=== PATIENT | female | born 1995 | race American Indian/Alaskan Native ===

== ENCOUNTER 2020-06-20 04:54 | Emergency (ER) | payer MEDICAID ==
[2020-06-20 05:06] VITALS: BP 145/90
[2020-06-20] MEDS ORDERED: oxyCODONE /ACETAMINOPHEN 5-325MG TAB ONE (05:20)
[2020-06-20] MEDS ORDERED: oxyCODONE /ACETAMINOPHEN 5-325MG TAB PO ONE (05:20)
--- NOTE | 2020-06-20 05:32 | XRay Report ---
RIGHT THUMB 3 VIEWS INDICATION / CLINICAL INFORMATION: right thumb injury COMPARISON: None available. FINDINGS: BONES / JOINT(S): No acute fracture or subluxation. No significant arthritis. SOFT TISSUES: No significant abnormality. ADDITIONAL FINDINGS: None. Signer Name: Ernie Nielson MD Signed: 06/20/2020 5:28 AM Workstation Name: [id number]
[2020-06-20] MEDS ORDERED: MORPHINE 4 MG/1 ML INJ ONE (06:20)
[2020-06-20] MEDS ORDERED: ONDANSETRON 4 MG/2 ML INJ ONE (06:20)
[2020-06-20] MEDS ORDERED: MORPHINE 4 MG/1 ML INJ IM ONE (06:20)
[2020-06-20] MEDS ORDERED: ONDANSETRON 4 MG/2 ML INJ IM ONE (06:20)
--- NOTE | 2020-06-20 06:37 | Emergency Department Report ---
Upper Extremity - HPI Chief Complaint: Extremity Injury, Upper Stated Complaint: RT THUMB INJURY Upper Extremity: Right Thumb Occurred When: 1 Day Mechanism: Crush Severity: moderate Symptoms: Yes Pain with Movement, Yes Limited Range of Movement, Yes Swelling, Yes Bruising/Ecchymosis, No Deformity, No Numbness, No Weakness, No Laceration or Abrasion Other History: subungual hematoma right thumb nail s/p thumb in car door. 4 hrs ago. pain 5/10 throbbing ED Review of Systems ROS: Stated complaint: RT THUMB INJURY Other details as noted in HPI Constitutional: denies: chills, fever Eyes: denies: eye pain, eye discharge, vision change ENT: denies: ear pain, throat pain Respiratory: denies: cough, shortness of breath, wheezing Cardiovascular: denies: chest pain, palpitations Endocrine: no symptoms reported Gastrointestinal: denies: abdominal pain, nausea, diarrhea Genitourinary: denies: urgency, dysuria, discharge Musculoskeletal: other (right thumb pain and swelling ) Skin: other (as above ). denies: rash, lesions Neurological: denies: headache, weakness, paresthesias Psychiatric: denies: anxiety, depression ED Past Medical Hx - Past Medical History Previous Medical History?: No - Surgical History Past Surgical History?: No - Social History Smoking Status: Never Smoker Substance Use Type: None - Medications Home Medications: Home Medications Medication Instructions Recorded Confirmed Last Taken Type traMADoL [Ultram] 50 mg PO Q6HR PRN #12 tablet 06/20/20 Unknown Rx Upper Extremity Exam - Exam General: Vital signs noted. No distress. Alert and acting appropriately. Head and Torso: No HEENT Abnormality, No Neck Tenderness, No Chest/Lungs Abnormality, No Abdominal Tenderness, No Back Tenderness Shoulder Exam: Yes Normal Range of Motion in Shoulder, No Shoulder Tenderness, No Clavicle Tenderness, No Shoulder Deformity, No AC Joint Tenderness Arm Exam: No Arm/Humerus Tenderness, No Arm Deformity Elbow: No Elbow Tenderness, No Normal Range of Motion in Elbow, No Elbow Deformity Forearm: No Forearm Tenderness, No Forearm Deformity, No Pain with Pronation, No Pain with Supination Wrist: Yes Normal ROM in Wrist, No Wrist Tenderness, No Wrist Deformity, No Snuffbox Tenderness, No Pain with Axial Thumb Compression Hand: Yes Digit Tenderness (right thumb nail subugual hematoma ), Yes Normal ROM in Digit(s), No Hand Tenderness, No Hand Deformity, No Digit(s) Deformity, No Tendon Dysfunction CMS Exam: Yes Normal Distal Pulses, Yes Normal Capillary Refill, Yes Normal Distal Sensation, No Broken Skin ED Course Vital Signs 06/20/20 05:01 Temperature 98.3 F Pulse Rate 67 Respiratory 18 Rate Blood Pressure 145/90 [Left] O2 Sat by Pulse 99 Oximetry - Procedure Description Procedures done: I&D of right thumb subugual hematoma, site cleaned with betadine solution, pt decline anethesia, hematoma relieved via 18 g need nail puncture x 2 , mod blood drainage , pain resolved sterile dressing applied all bleeding controlled, metal polisher <3 sec, distal pulses intact pt given follow up instr uctions verbalized agreement and understanding of same. pt tolerated procedure with minimal distress. ED Medical Decision Making - Radiology Data Radiology results: report reviewed, image reviewed interpreted by me: Findings Reporting MD: Ernie Nielson Dictation Time: June 20, 2020 04:28 X Ray Consultant: Not available Optical Designer Date: RIGHT THUMB 3 VIEWS INDICATION / CLINICAL INFORMATION: right thumb injury COMPARISON: None available. FINDINGS: BONES / JOINT(S): No acute fracture or subluxation. No significant arthritis. SOFT TISSUES: No significant abnormality. ADDITIONAL FINDINGS: None. Signer Name: Ernie Nielson MD Signed: 06/20/2020 4:28 AM Workstation Name: [id number] - Medical Decision Making I&D of subungual hematoma right thumb. See procedure note, sterile dressings applied all bleeding is controlled patient given follow-up instructions including follow-up with PCP in 2 days for wound check. Plan Ultram p.o. as needed pain, quadricep and water , 2 x 2 gauze dressing daily, return to emergency department should symptoms worsen. Patient will be DC'd home in stable condition at this time, F[place] remains less than 3 seconds distal pulses intact range of motion is intact x-ray negative for fracture. Critical care attestation.: If time is entered above; I have spent that time in minutes in the direct care of this critically ill patient, excluding procedure time. ED Disposition Clinical Impression: Subungual hematoma of right thumb Qualifiers: Encounter type: initial encounter Qualified Code(s): S60.111A - Contusion of right thumb with damage to nail, initial encounter Disposition: DC-01 TO HOME OR SELFCARE Is pt being admited?: No Does the pt Need Aspirin: No Condition: Stable Instructions: Subungual Hematoma (ED) Prescriptions: traMADoL [Ultram] 50 mg PO Q6HR PRN #12 tablet PRN Reason: Pain Referrals: MARK SHETH MD [Staff Physician] - 3-5 Days Forms: Work/School Release Form(ED) Time of Disposition: 06:41
== END 2020-06-20 08:58 | disposition left against medical advice (07) ==
LOC: ED 04:54
DX: S60.111A Contusion of right thumb with damage to nail, initial encounter (principal); X58.XXXA Exposure to other specified factors, initial encounter; Y93.89 Activity, other specified; Y99.8 Other external cause status; Y92.89 Other specified places as the place of occurrence of the external cause
CPT/HCPCS: 11740; 73130; 96372; 99283; J2270; J2405

== ENCOUNTER 2020-06-22 16:11 | Emergency (ER) | payer MEDICAID ==
[2020-06-22 16:18] VITALS: BP 132/86
[2020-06-22] MEDS ORDERED: LIDOCAINE-MPF (1%) 10 MG/1 ML VIAL 5 ML INFILTRATI ONE (16:24)
[2020-06-22] MEDS ORDERED: HYDROcodone/ACETAMINOPHEN 5-325 MG TAB PO ONE (16:24)
--- NOTE | 2020-06-22 16:26 | Event Note ---
ED Screening Note Date of service: 06/22/20 Time: 16:25 ED Screening Note: 25-year-old female presents to the emergency room for trauma to her right thumb. Patient was seen here on 06/20/2020 x-ray was negative for any acute fractures. An attempt to do a I&D was unsuccessful. Patient was sent home with a prescription for tramadol but unfortunately patient was not able to stay to complete her get her discharge summary. Patient is back from to be reevaluated. This initial assessment/diagnostic orders/clinical plan/treatment(s) is/are subject to change based on patients health status, clinical progression and re- assessment by fellow clinical providers in the ED. Further treatment and workup at subsequent clinical providers discretion. Patient/guardian urged not to elope from the ED as their condition may be serious if not clinically assessed and managed. Initial orders include:
[2020-06-22] MEDS ORDERED: HYDROcodone/ACETAMINOPHEN 5-325 MG TAB ONE (18:44)
[2020-06-22] MEDS ORDERED: LIDOCAINE-MPF (1%) 10 MG/1 ML VIAL 5 ML ONE (18:44)
[2020-06-22] MEDS ORDERED: HYDROGEN PEROXIDE 118 ML SOLUTION ONE (20:31)
[2020-06-22] MEDS ORDERED: HYDROGEN PEROXIDE 118 ML SOLUTION TP ONE (20:35)
--- NOTE | 2020-06-22 21:05 | Emergency Department Report ---
ED Upper Extremity Inj HPI - General Chief Complaint: Extremity Injury, Upper Stated Complaint: RT HAND SWOLLEN/PAIN Time Seen by Provider: 06/22/20 20:11 Source: patient Mode of arrival: Ambulatory Limitations: No Limitations - History of Present Illness Initial Comments: 25-year-old [place] female that emerge department complaining of continued right thumb pain after slamming in a car no 2 days ago. She was initially seen emergency department where they attempted to evacuate the subungual hematoma with needle decompression however were unsuccessful states that her symptoms have continued to worsen and she presents to be reevaluated. Ports no fever chills or sweats no chest pain or palpitation no nausea vomiting. -: Sudden, days(s) (2) Other Extremity Injury: Fingers: Right (First phalange) Handedness: right Place: home Improves With: none Context: direct blow (Slammed in a car door 2 days ago), injury - Related Data Previous Rx's Medication Instructions Recorded Last Taken Type traMADoL [Ultram] 50 mg PO Q6HR PRN #12 tablet 06/20/20 Unknown Rx Allergies Allergy/AdvReac Type Severity Reaction Status Date / Time lorazepam [From Ativan] Allergy Hives Verified 06/20/20 04:56 ED Review of Systems ROS: Stated complaint: RT HAND SWOLLEN/PAIN Other details as noted in HPI Comment: All other systems reviewed and negative ED Past Medical Hx - Past Medical History Previous Medical History?: Yes Additional medical history: childbirth - Surgical History Past Surgical History?: Yes Additional Surgical History: - Social History Smoking Status: Never Smoker Substance Use Type: None - Medications Home Medications: Home Medications Medication Instructions Recorded Confirmed Last Taken Type traMADoL [Ultram] 50 mg PO Q6HR PRN #12 tablet 06/20/20 Unknown Rx ED Physical Exam - General Limitations: No Limitations General appearance: alert, in no apparent distress - Head Head exam: Present: atraumatic, normocephalic - Eye Eye exam: Present: normal appearance - ENT ENT exam: Present: mucous membranes moist - Neck Neck exam: Present: normal inspection - Respiratory Respiratory exam: Present: normal lung sounds bilaterally. Absent: respiratory distress - Cardiovascular Cardiovascular Exam: Present: regular rate, normal rhythm. Absent: systolic murmur, diastolic murmur, rubs, gallop - GI/Abdominal GI/Abdominal exam: Present: soft, normal bowel sounds - Extremities Exam Extremities exam: Present: normal inspection, tenderness - Expanded Upper Extremity Exam Right Hand Wrist exam: Present: tenderness, swelling, subungual hematoma (Right first phalanges) - Back Exam Back exam: Present: normal inspection - Neurological Exam Neurological exam: Present: alert, oriented X3 - Psychiatric Psychiatric exam: Present: normal affect, normal mood - Skin Skin exam: Present: warm, dry, intact, normal color. Absent: rash ED Course Vital Signs 06/22/20 06/22/20 16:16 18:50 Temperature 98.6 F Pulse Rate 93 H Respiratory 16 20 Rate Blood Pressure 132/86 O2 Sat by Pulse 100 Oximetry - Procedure Description Procedures done: Subungual hematoma evacuated with no complications utilizing cautery the wound area was irrigated with peroxide tolerated well patient did report a significant release in pressure Critical care attestation.: If time is entered above; I have spent that time in minutes in the direct care of this critically ill patient, excluding procedure time. ED Disposition Clinical Impression: Subungual hematoma of right thumb Disposition: DC-01 TO HOME OR SELFCARE Is pt being admited?: No Does the pt Need Aspirin: No Condition: Stable Instructions: Subungual Hematoma (ED) Additional Instructions: Your subungual hematoma was evacuated utilizing cautery with good evacuation of your hematoma. Please keep wound clean and wait until your nailbed heals before moving forward with obtaining the your fingernails Referrals: PRIMARY CARE, [Primary Care Provider] - 3-5 Days [facility] [Provider Group] - 3-5 Days Forms: Work/School Release Form(ED)
== END 2020-06-22 21:16 | disposition home or self-care (01) ==
LOC: ED 16:11
DX: S60.011A Contusion of right thumb without damage to nail, initial encounter (principal); Z98.890 Other specified postprocedural states; Z79.899 Other long term (current) drug therapy; Z88.8 Allergy status to other drugs, medicaments and biological substances; X58.XXXA Exposure to other specified factors, initial encounter; Y93.89 Activity, other specified; Y92.009 Unspecified place in unspecified non-institutional (private) residence as the place of occurrence of the external cause; Y99.8 Other external cause status